=== PATIENT | male | born 1990 | race Caucasian/White ===

== ENCOUNTER 2016-10-24 20:33 | Inpatient (IN) | payer SELFPAY ==
[~2016-10-24] VITALS: Ht 175.3 cm; Wt 73.5 kg
[2016-10-24 20:35] VITALS: BP 133/76; PULSE 84; RESP 18; TEMP 98.4; O2SAT 98
[2016-10-24] MEDS ORDERED: SODIUM CHLOR 0.9% 1000 ML INJ 1,000 ML IV SCH (20:45)
[2016-10-24] MEDS ORDERED: KETOROLAC TROMETHAMINE 30 MG/ML (IVP) VIAL IV PUSH ONE (21:00)
[2016-10-24] MEDS ORDERED: ONDANSETRON HCL 4 MG/2 ML VIAL IV PUSH ONE (21:00)
[2016-10-24 21:08] LABS: AUTOMATED NEUTROPHIL # 7.8 TH/MM3 (1.8-7.7); BASOPHIL % 0.2 % (0.0-2.0); EOSINOPHIL # 0.1 TH/MM3 (0-0.4); EOSINOPHIL % 0.8 % (0.0-4.0); HEMATOCRIT 44.7 % (39.0-51.0); HEMO FLAGS DIFF FINAL; LYMPH % 11.9 % (9.0-44.0); LYMPHOCYTE # 1.2 TH/MM3 (1.0-4.8); MEAN CELL VOLUME 84.5 FL (80.0-100.0); MEAN CORPUSCULAR HEMOGLOBIN 29.6 PG (27.0-34.0); NEUT % 78.1 % (16.0-70.0); PLATELET COUNT 231 TH/MM3 (150-450); RED BLOOD COUNT 5.29 MIL/MM3 (4.50-5.90); RED CELL DISTRIBUTION WIDTH 12.8 % (11.6-17.2); WHITE BLOOD COUNT 9.9 TH/MM3 (4.0-11.0)
[2016-10-24 21:26] LABS: APTT (PATIENT) 28.9 SEC (24.3-30.1); PROTHROMBIN TIME - PATIENT 10.9 SEC (9.8-11.6)
[2016-10-24 21:34] LABS: ANION GAP 8 MEQ/L (5-15); AST (GOT) 593 U/L (15-37); BICARBONATE 29.5 MEQ/L (21.0-32.0); BLOOD UREA NITROGEN 8 MG/DL (7-18); CHLORIDE 102 MEQ/L (98-107); GLOMERULAR FILTRATION RATE 96 ML/MIN (>89); POTASSIUM 4.1 MEQ/L (3.5-5.1); SODIUM (NA) 139 MEQ/L (136-145)
[2016-10-24 21:42] LABS: ALKALINE PHOSPHATASE 190 U/L (45-117); ALT (GPT) 1524 U/L (12-78); TOTAL BILIRUBIN ADULT 0.5 MG/DL (0.2-1.0)
[2016-10-24] MEDS ORDERED: MORPHINE SULFATE 4 MG/ML INJ IV PUSH ONE (22:00)
--- NOTE | 2016-10-24 22:10 | PD ---
HPI Chief Complaint: Abdominal Pain Time Seen by Provider: 22:04 Travel History International Travel<30 days: No Contact w/Intl Traveler<30days: No Traveled to known affect area: No History of Present Illness HPI 26-year-old male that presents to the ED for evaluation of abdominal pain. Patient came here by ambulance for evaluation of this. Per patient last year he was diagnosed by a hospital in [place] with what appears to be liver failure. At the time the didn't know what was the cause but apparently he does have a history of IV drug abuse and this was felt to be the diagnosis. Patient did not want to stay at that hospital and left AMA. Patient went to this hospital in July and was seen at the time he was not felt to require admission. Patient has not followed up with anybody since. Per patient his been doing okay and his been off drugs and alcohol since. Per patient for the past 4 days she's been developing some right upper quadrant as well as left lower quadrant abdominal discomfort that comes and goes. Per patient he feels nauseous. He's also been having darker urine than usual. He is concerned that his symptoms might be worsening. Per patient the pain currently is 6 out of 10. He denies any headache. He states feeling nauseous with some vomiting. He states having some chills and sweats. Per patient he states that he been told that his skin and eyes are somewhat yellow. PFSH Past Medical History Hepatitis: Yes (c) Medical other: Yes (liver problems undiagnosed) Social History Alcohol Use: No ("QUIT" "ON PROBATION") Tobacco Use: Yes (1 PPD) Substance Use: Yes (marijuana) Allergies-Medications (Allergen,Severity, Reaction): Coded Allergies: No Known Allergies (Verified , 10/24/16) Reported Meds & Prescriptions Reported Meds & Active Scripts Active No Active Prescriptions or Reported Medications Review of Systems General / Constitutional: Positive: Fever, No: Weight Gain, Weight Loss, Other Eyes: No: Diploplia, Blurred Vision, Photophobia, Drainage, Redness, Foreign Body Sensation, Pain, Tearing, Blind Spots, Visual changes, Blindness, Other HENT: No: Headaches, Vertigo, Lightheadedness, Sore Throat, Rhinitis, Rhinorrhea, Congestion, Nosebleed, Neck Stiffness, Neck Pain, Masses, Gingival Bleeding, Dental Difficulties, Ear Discharge, Earache, Other Cardiovascular: No: Chest Pain or Discomfort, Palpitations, Irregular Rhythm, Tachycardia, Diaphoresis, Syncope, Dyspnea on exertion, Varicosities, Edema, Cyanosis, Varicosities, Phlebitis, Claudication, Other Respiratory: No: Cough, Shortness of Breath, Wheezing, Sneezing, Orthopnea, Hemoptysis, Stridor, Night Sweats, Pleuritic Pain, Other Gastrointestinal: Positive: Nausea, Vomiting, Diarrhea, Abdominal Pain, Changes in Bowel Habits, No: Hematemesis, Hematochezia, Constipation, Indigestion, Dysphagia, Loss of Appetite, Other Genitourinary: No: Urgency, Frequency, Dysuria, Nocturia, Hematuria, Decreased Urinary Output, Oliguria, Hesitancy, Dribbling, Incontinence, Pelvic Pain, Flank Pain, Dyspareunia, Discharge, Dysmenorrhea, Menorrhagia, Metorrhagia, Vaginal Bleeding, Other Musculoskeletal: No: Myalgias, Arthralgias, Limited ROM, Weakness, Cramping, Edema, Pain, Atrophy, Other Skin: No Rash, No Itching, No Dryness, No Lumps, No Hives, No Change in Pigmentation, No Change in nails, No Alopecia, No Lesions, No Breast Lumps, No Breast Tenderness, No Breast Swelling, No Other Neurologic: No: Weakness, Dizziness, Syncope, Focal Abnormalities, Coordination Problem, Tremor, Ataxia, Headache, Change in Mentation, Slurred Speech, Paresthesia, Incontinence, Seizures, Sensory Disturbance, Other Psychiatric: No: Anxiety, Depression, Suicidal Ideations, Disorder of Thought, Mood Disorder, Substance Abuse, Homicidal Ideation, Other Endocrine: No: Heat Intolerance, Cold Intolerance, Polyuria, Polydipsia, Other Hematologic/Lymphatic: No: Easy Bruising, Lymph Node Enlargement, Other Physical Exam Narrative GENERAL: SKIN: Warm and dry. HEAD: Atraumatic. Normocephalic. EYES: Pupils equal and round. No scleral icterus. No injection or drainage. ENT: No nasal bleeding or discharge. Mucous membranes pink and moist. Tongue is midline. No uvula deviation. NECK: Trachea midline. No JVD. CARDIOVASCULAR: Regular rate and rhythm. No murmurs, S3, S4. RESPIRATORY: No accessory muscle use. Clear to auscultation. Breath sounds equal bilaterally. GASTROINTESTINAL: Abdomen soft, slight tenderness to palpation on the right upper quadrant as well as in the left lower quadrant but no obvious Zuñiga sign , nondistended. Hepatic and splenic margins not palpable. MUSCULOSKELETAL: Extremities without clubbing, cyanosis, or edema. No obvious deformities. Full range of motion of the upper and lower extremities bilaterally. 2+ pulses bilaterally. NEUROLOGICAL: Awake and alert. No obvious cranial nerve deficits. Motor grossly within normal limits. Five out of 5 muscle strength in the arms and legs. Normal speech. PSYCHIATRIC: Appropriate mood and affect; insight and judgment normal. Data Data Last Documented VS Vital Signs Date Time Temp Pulse Resp B/P Pulse Ox O2 Delivery O2 Flow Rate FiO2 10/24/16 23:01 18 10/24/16 20:35 98.4 84 133/76 98 Orders Complete Blood Count With Diff (10/24/16 20:45) Comprehensive Metabolic Panel (10/24/16 20:45) Lipase (10/24/16 20:45) Prothrombin Time / Inr (Pt) (10/24/16 20:45) Act Partial Throm Time (Ptt) (10/24/16 20:45) Urinalysis - C+S If Indicated (10/24/16 20:45) Iv Access Insert/Monitor (10/24/16 20:45) Ecg Monitoring (10/24/16 20:45) Oximetry (10/24/16 20:45) Sodium Chlor 0.9% 1000 Ml Inj (Ns 1000 M (10/24/16 20:45) Drug Screen, Random Urine (10/24/16 20:45) Ketorolac Inj (Toradol Inj) (10/24/16 21:00) Ondansetron Inj (Zofran Inj) (10/24/16 21:00) Morphine Inj (Morphine Inj) (10/24/16 22:00) Ct Abd/Pel W Iv Contrast(Rout) (10/24/16 ) Tylenol (Acetaminophen) (10/24/16 23:06) Labs Laboratory Tests Test 10/24/16 10/24/16 20:55 22:10 White Blood Count 9.9 TH/MM3 Red Blood Count 5.29 MIL/MM3 Hemoglobin 15.7 GM/DL Hematocrit 44.7 % Mean Corpuscular Volume 84.5 FL Mean Corpuscular Hemoglobin 29.6 PG Mean Corpuscular Hemoglobin 35.0 % Concent Red Cell Distribution Width 12.8 % Platelet Count 231 TH/MM3 Mean Platelet Volume 7.6 FL Neutrophils (%) (Auto) 78.1 % Lymphocytes (%) (Auto) 11.9 % Monocytes (%) (Auto) 9.0 % Eosinophils (%) (Auto) 0.8 % Basophils (%) (Auto) 0.2 % Neutrophils # (Auto) 7.8 TH/MM3 Lymphocytes # (Auto) 1.2 TH/MM3 Monocytes # (Auto) 0.9 TH/MM3 Eosinophils # (Auto) 0.1 TH/MM3 Basophils # (Auto) 0.0 TH/MM3 CBC Comment DIFF FINAL Differential Comment Prothrombin Time 10.9 SEC Prothromb Time International 1.0 RATIO Ratio Activated Partial 28.9 SEC Thromboplast Time Sodium Level 139 MEQ/L Potassium Level 4.1 MEQ/L Chloride Level 102 MEQ/L Carbon Dioxide Level 29.5 MEQ/L Anion Gap 8 MEQ/L Blood Urea Nitrogen 8 MG/DL Creatinine 0.94 MG/DL Estimat Glomerular Filtration 96 ML/MIN Rate Random Glucose 93 MG/DL Calcium Level 9.5 MG/DL Total Bilirubin 0.5 MG/DL Aspartate Amino Transf 593 U/L (AST/SGOT) Alanine Aminotransferase 1524 U/L (ALT/SGPT) Alkaline Phosphatase 190 U/L Total Protein 7.8 GM/DL Albumin 3.8 GM/DL Lipase 141 U/L Urine Color YELLOW Urine Turbidity CLEAR Urine pH 8.0 Urine Specific [place] 1.015 Urine Protein NEG mg/dL Urine Glucose (UA) NEG mg/dL Urine Ketones NEG mg/dL Urine Occult Blood NEG Urine Nitrite NEG Urine Bilirubin NEG Urine Urobilinogen LESS THAN 2.0 MG/DL Urine Leukocyte Esterase NEG Urine RBC LESS THAN 1 /hpf Urine WBC LESS THAN 1 /hpf Microscopic Urinalysis Comment CULT NOT INDICATED Urine Opiates Screen NEG Urine Barbiturates Screen NEG Urine Amphetamines Screen NEG Urine Benzodiazepines Screen NEG Urine Cocaine Screen POS Urine Cannabinoids Screen POS MDM Medical Decision Making Medical Screen Exam Complete: Yes Emergency Medical Condition: Yes Medical Record Reviewed: Yes Interpretation(s) LFTs highly elevated. CBC & BMP Diagram 10/24/16 20:55 coags WNL tox positive for cocaine and marijuana Differential Diagnosis Liver failure versus elevated liver enzymes versus hepatitis versus UTI versus sepsis versus cholecystitis versus cholelithiasis Narrative Course 26-year-old male that presents to the ED for evaluation of abdominal discomfort. Patient was properly examined and was found to have signs and symptoms consistent with appears to be abdominal pain. Labs were initially ordered as well as fluids and pain medications. Labs did show severe elevated LFTs with a ALT being 1500s. This is more than tripled what he was found to have on July. I discussed this with my attending Dr Wheeler who recommends imaging and admission. Case was discussed with Dr. Callejas who recommends Tylenol level but agrees to admission. Tylenol level was ordered by me. Patient agrees with plan. Diagnosis Primary Impression: Elevated liver enzymes Admitting Information Admitting Physician Requests: Admit Scripts No Active Prescriptions or Reported Meds Florian Hardin Oct 24, 2016 22:09
[2016-10-24 22:32] LABS: BLOOD, URINE NEG (NEG); GLUCOSE,URINE NEG (NEG); KETONE, URINE NEG (NEG); NITRITE,URINE NEG (NEG); URINE COLOR YELLOW (YELLW/STRAW)
[2016-10-24 22:34] LABS: COMMENT (UR) CULT NOT INDICATED; CULTURE IF INDICATED CULT NOT INDICATED
[2016-10-24 22:39] LABS: AMPHETAMINE, URINE NEG (NEG); BARBITURATES, URINE NEG (NEG); COCAINE, URINE POS (NEG)
[2016-10-24] MEDS ORDERED: IOHEXOL 350 MG/ML 10 ML VIAL (for RAD DIAG) IV ONE (23:08)
--- NOTE | 2016-10-24 23:09 | HHI.HP ---
[facility] No Primary Care Physician Admission Diagnosis severely elevated LFTs, hep C Diagnoses: (1) Elevated liver enzymes Diagnosis: Principal (2) Cocaine abuse Diagnosis: Principal (3) Tobacco abuse Diagnosis: Principal (4) IVDU (intravenous drug user) Diagnosis: Principal Travel History International Travel<30 Days: No Contact w/Intl Traveler <30 Da: No Traveled to Known Affected Are: No History of Present Illness This is a 26-year-old male with a PMH of Hepatitis C, Tobacco Abuse and IVDU w/ Cocaine who was brought to the ER by EMS secondary to complaints of abdominal pain x1 month in addition to brown-colored urine. States symptoms have been worsening for the last 2-3 days. Reports he was seen in [place] [facility] for similar complaints approx 4 months ago and was told have "liver failure", however he Left [place] and returned to [facility]. Seen in ER here on 07/22/16 w/ similar complaints, LFTs mildly elevated at that time and d/c'd home w/ referral to Dr. Colón w/ GI however pt never followed up. On arrival, BP 133/ 76, HR 84, O2 sat 98% on RA, Afebrile. CBC unremarkable. Chemistry unremarkable. AST 593, ALT 1524, ALP 190, previously AST 43, ALT 374 and ALP 74 on 07/22/16. Denies recent IVDU, however Urine Drug Screen positive for Cocaine and Marijuana. CT Abd/Pelvis w/ no acute findings. Review of Systems Except as stated in HPI: all other systems reviewed are Neg ROS: 14 point review of systems otherwise negative. Past Family Social History Past Medical History PMH: Hepatitis C, Tobacco Abuse and IVDU w/ Cocaine Past Surgical History PAST SURGICAL HISTORY: Left Knee Surgery Allergies: Coded Allergies: No Known Allergies (Verified , 10/24/16) Family History PAST FAMILY HISTORY: Reviewed. No h/o DM or CAD Social History PAST SOCIAL HISTORY: History of alcohol, denies ongoing use. Smokes 1ppd. IVDU w/ Cocaine/Dilaudid. +Marijuana. Physical Exam Vital Signs Vital Signs Date Time Temp Pulse Resp B/P Pulse Ox O2 Delivery O2 Flow Rate FiO2 10/24/16 23:01 18 10/24/16 20:35 98.4 84 18 133/76 98 Physical Exam PE: GENERAL: Young male in no acute distress. HEENT: PERRLA, EOMI. No scleral icterus or conjunctival pallor. No lid lag or facial droop. CARDIOVASCULAR: Regular rate and rhythm. No obvious murmurs to auscultation. No chest tenderness to palpation. RESPIRATORY: No obvious rhonchi or wheezing. Clear to auscultation. Breath sounds equal bilaterally. GASTROINTESTINAL: Abdomen soft, mild RUQ tenderness palpation, nondistended. BS normal. MUSCULOSKELETAL: Extremities without clubbing, cyanosis, or edema. No obvious deformities. NEUROLOGICAL: Awake, alert and oriented x4. No focal neurologic deficits. Moving both upper and lower extremities spontaneously. Laboratory Laboratory Tests Test 10/24/16 10/24/16 20:55 22:10 White Blood Count 9.9 Red Blood Count 5.29 Hemoglobin 15.7 Hematocrit 44.7 Mean Corpuscular Volume 84.5 Mean Corpuscular Hemoglobin 29.6 Mean Corpuscular Hemoglobin 35.0 Concent Red Cell Distribution Width 12.8 Platelet Count 231 Mean Platelet Volume 7.6 Neutrophils (%) (Auto) 78.1 Lymphocytes (%) (Auto) 11.9 Monocytes (%) (Auto) 9.0 Eosinophils (%) (Auto) 0.8 Basophils (%) (Auto) 0.2 Neutrophils # (Auto) 7.8 Lymphocytes # (Auto) 1.2 Monocytes # (Auto) 0.9 Eosinophils # (Auto) 0.1 Basophils # (Auto) 0.0 CBC Comment DIFF FINAL Differential Comment Prothrombin Time 10.9 Prothromb Time International 1.0 Ratio Activated Partial 28.9 Thromboplast Time Sodium Level 139 Potassium Level 4.1 Chloride Level 102 Carbon Dioxide Level 29.5 Anion Gap 8 Blood Urea Nitrogen 8 Creatinine 0.94 Estimat Glomerular Filtration 96 Rate Random Glucose 93 Calcium Level 9.5 Total Bilirubin 0.5 Aspartate Amino Transf 593 (AST/SGOT) Alanine Aminotransferase 1524 (ALT/SGPT) Alkaline Phosphatase 190 Total Protein 7.8 Albumin 3.8 Lipase 141 Urine Color YELLOW Urine Turbidity CLEAR Urine pH 8.0 Urine Specific [place] 1.015 Urine Protein NEG Urine Glucose (UA) NEG Urine Ketones NEG Urine Occult Blood NEG Urine Nitrite NEG Urine Bilirubin NEG Urine Urobilinogen LESS THAN 2.0 Urine Leukocyte Esterase NEG Urine RBC LESS THAN 1 Urine WBC LESS THAN 1 Microscopic Urinalysis Comment CULT NOT INDICATED Urine Opiates Screen NEG Urine Barbiturates Screen NEG Urine Amphetamines Screen NEG Urine Benzodiazepines Screen NEG Urine Cocaine Screen POS Urine Cannabinoids Screen POS Result Diagram: 10/24/16205410/24/162054 Assessment and Plan Problem List: (1) Elevated liver enzymes ICD Code: R74.8 Status: Acute (2) Cocaine abuse ICD Code: F14.10 Status: Acute (3) IVDU (intravenous drug user) ICD Code: F19.90 Status: Acute (4) Tobacco abuse ICD Code: Z72.0 Status: Acute Assessment and Plan A/P: 1. Elevated LFTs: c/o ongoing abdominal pain x1 month, previous eval approx 4 months ago for "liver failure" however Left AMA, LFTs now increased from previous labs 07/22/16. CT Abd/Pelvis w/ no acute findings, images reviewed by me. H/o Hepatitis however unconfirmed. Will check Hepatitis Panel, if positive will check RNA Quant & Genotype. Check Acetaminophen level. Lipase normal. GI Consult as needed. 2. Cocaine Abuse: Denies ingestion however Urine Drug Screen positive for Cocaine, ? elevated LFTs from vasoconstriction due to drug use. Repeat labs in am. 3. Tobacco Abuse: Pt counselled. Ativan prn as needed. 4. IVDU: Denies recent use. Pt counselled. Ativan prn 5. DVT Prophylaxis: SCD/Teds. 6. Social work for d/c planning as needed. 7. Case discussed w/ ER physician at length. Physician Certification 2 Midnight Certification Type: Admission for Inpatient Services Order for Inpatient Services The services are ordered in accordance with Medicare regulations or non- Medicare payer requirements, as applicable. In the case of services not specified as inpatient-only, they are appropriately provided as inpatient services in accordance with the 2-midnight benchmark. Estimated LOS (days): 2 days is the estimated time the patient will need to remain in the hospital, assuming treatment plan goals are met and no additional complications. Post-Hospital Plan: Home Mable Callejas MD Oct 24, 2016 23:08
[2016-10-24] MEDS ORDERED: BISACODYL 10 MG SUPP PR PRN (23:15)
[2016-10-24] MEDS ORDERED: ONDANSETRON HCL 4 MG/2 ML VIAL IVP PRN (23:15)
[2016-10-24] MEDS ORDERED: LORazepam 2 MG/ML VIAL IV PUSH PRN (23:15)
[2016-10-24] MEDS: SODIUM CHLOR 0.9% 1000 ML INJ 1,000 ML IV SCH (23:38)
--- NOTE | 2016-10-24 23:45 | RADRPT ---
EXAM DATE/TIME: 10/24/2016 22:50 [facility] COMPARISON: No previous studies available for comparison. INDICATIONS : Abdominal pain and dark urine X 4 weeks. IV CONTRAST: 96 cc Omnipaque 350 (iohexol) IV ORAL CONTRAST: No oral contrast ingested. RADIATION DOSE: 5.85 CTDIvol (mGy) MEDICAL HISTORY : Hepatitis C. prior IV drug abuse and ETOH abuse SURGICAL HISTORY : None. ENCOUNTER: Initial ACUITY: 1 month PAIN SCALE: 6/10 LOCATION: abdomen TECHNIQUE: Volumetric scanning of the abdomen and pelvis was performed. Using automated exposure control and ad justment of the mA and/or kV according to patient size, radiation dose was kept as low as reasonably achievable to obtain optimal diagnostic quality images. FINDINGS: LOWER LUNGS: The visualized lower lungs are clear. LIVER: Homogeneous density without lesion. There is no dilation of the biliary tree. No calcified gallston es. SPLEEN: Normal size without lesion. PANCREAS: Within normal limits. KIDNEYS: Normal in size and shape. There is no mass, stone or hydronephrosis. ADRENAL GLANDS: Within normal limits. VASCULAR: There is no aortic aneurysm. BOWEL/MESENTERY: The stomach, small bowel, and colon demonstrate no acute abnormality. There is no free intraperitone al air or fluid. ABDOMINAL WALL: Within normal limits. RETROPERITONEUM: There is no lymphadenopathy. BLADDER: No wall thickening or mass. REPRODUCTIVE: Within normal limits. INGUINAL: There is no lymphadenopathy or hernia. MUSCULOSKELETAL: Within normal limits for patient age. CONCLUSION: Normal examination. Lazarus Hendrix Jr., MD on October 24, 2016 at 23:42 Board Certified Radiologist. This report was verified electronically.
[2016-10-25] MEDS ORDERED: MORPHINE SULFATE 8 MG/ML INJ IV PUSH ONE (02:16)
[2016-10-25] MEDS ORDERED: ONDANSETRON HCL 4 MG/2 ML VIAL IV PUSH ONE (02:16)
[2016-10-25] MEDS ORDERED: MORPHINE SULFATE 8 MG/ML INJ ONE (02:27)
[2016-10-25] MEDS ORDERED: DEXTROSE 5% IV ONE ×6 (02:30→07:30)
[2016-10-25] MEDS ORDERED: ACETYLCYSTEINE IV ONE ×6 (02:30→07:30)
[2016-10-25] MEDS ORDERED: WATER IV ONE ×2 (02:30)
[2016-10-25] MEDS: SODIUM CHLOR 0.9% 1000 ML INJ 1,000 ML IV SCH ×3 (02:58→03:48)
[2016-10-25] MEDS ORDERED: SODIUM CHLOR 0.9% 1000 ML INJ 1,000 ML IV ONE (03:00)
[2016-10-25] MEDS ORDERED: WATE IV ONE ×4 (03:30→07:30)
[2016-10-25 03:43] LABS: AUTOMATED NEUTROPHIL # 3.8 TH/MM3 (1.8-7.7); BASOPHIL % 0.6 % (0.0-2.0); EOSINOPHIL # 0.2 TH/MM3 (0-0.4); EOSINOPHIL % 2.7 % (0.0-4.0); HEMATOCRIT 39.6 % (39.0-51.0); HEMO FLAGS DIFF FINAL; LYMPH % 29.6 % (9.0-44.0); LYMPHOCYTE # 1.9 TH/MM3 (1.0-4.8); MEAN CELL VOLUME 84.3 FL (80.0-100.0); MEAN CORPUSCULAR HEMOGLOBIN 28.9 PG (27.0-34.0); MEAN CORPUSCULAR HGB CONC 34.3 % (32.0-36.0); MONO % 9.7 % (0.0-8.0); NEUT % 57.4 % (16.0-70.0); PLATELET COUNT 198 TH/MM3 (150-450); RED BLOOD COUNT 4.69 MIL/MM3 (4.50-5.90); RED CELL DISTRIBUTION WIDTH 12.8 % (11.6-17.2); WHITE BLOOD COUNT 6.6 TH/MM3 (4.0-11.0)
[2016-10-25 03:47] LABS: INTERNATIONAL NORMALIZED RATIO 1.1 RATIO; PROTHROMBIN TIME - PATIENT 12.2 SEC (9.8-11.6)
[2016-10-25 03:56] LABS: ANION GAP 13 MEQ/L (5-15); AST (GOT) 391 U/L (15-37); BICARBONATE 26.4 MEQ/L (21.0-32.0); BLOOD UREA NITROGEN 11 MG/DL (7-18); CHLORIDE 104 MEQ/L (98-107); POTASSIUM 3.8 MEQ/L (3.5-5.1); SODIUM (NA) 143 MEQ/L (136-145)
[2016-10-25 04:03] LABS: ALKALINE PHOSPHATASE 142 U/L (45-117); ALT (GPT) 1140 U/L (12-78); TOTAL BILIRUBIN ADULT 0.5 MG/DL (0.2-1.0)
[2016-10-25 04:18] VITALS: BP 135/88; PULSE 88; RESP 18; O2SAT 96
[2016-10-25 04:40] VITALS: BP 131/44; PULSE 73; RESP 22; TEMP 97; O2SAT 98
[2016-10-25 08:00] VITALS: BP 126/63; PULSE 71; RESP 18; TEMP 97.2; O2SAT 98
[2016-10-25] MEDS: MORPHINE SULFATE 4 MG/ML INJ IV PRN ×4 (08:16→21:15)
[2016-10-25] MEDS: SODIUM CHLORIDE 0.9% FLUSH 10 ML FLUSH IV FLUSH SCH ×2 (08:17→21:00)
--- NOTE | 2016-10-25 11:14 | HHI.PR ---
Subjective Remarks in no acute distress. complaining of abdominal pain and some nausea. no fever. Objective Vitals Vital Signs Date Time Temp Pulse Resp B/P Pulse Ox O2 Delivery O2 Flow Rate FiO2 10/25/16 08:00 97.2 71 18 126/63 98 10/25/16 07:00 Room Air 10/25/16 04:40 97.0 73 22 131/44 98 10/25/16 04:18 96 Room Air 10/25/16 04:18 88 18 135/88 96 Room Air 10/24/16 23:01 18 10/24/16 20:35 98.4 84 18 133/76 98 I/O 10/24/16 10/24/16 10/24/16 10/25/16 10/25/16 10/25/16 07:00 15:00 23:00 07:00 15:00 23:00 Intake Total 480 ml Output Total 500 ml Balance -20 ml Intake Oral 480 ml Output Urine Total 500 ml # Bowel Movements 0 Result Diagram: 10/25/16 0327 10/25/16 0327 Imaging Last Impressions Abdomen/Pelvis CT 10/24/16 0000 Signed Impressions: Service Date/Time: Monday, October 24, 2016 22:50 - CONCLUSION: Normal examination. Lazarus Hendrix Jr., MD Objective Remarks GENERAL: This is a well-nourished, well-developed patient, in no apparent distress. CARDIOVASCULAR: Regular rate and regular rhythm without murmurs, gallops, or rubs. RESPIRATORY: Clear to auscultation. Breath sounds equal bilaterally. No wheezes , rales, or rhonchi. GASTROINTESTINAL: Abdomen soft, epigastric tenderness, nondistended. Normal, active bowel sounds MUSCULOSKELETAL: Extremities without clubbing, cyanosis, or edema. NEURO: Alert & Oriented x4 to person, place, time, situation. Moves all ext x4 Procedures none Medications and IVs Current Medications Sodium Chloride (NS 1000 ml Inj) 1,000 ml @ 1,000 mls/hr Q1H IV Last administered on 10/24/16 20:53; Start 10/24/16 at 20:45; Stop 10/24/16 at 21:44 ; Status DC Ketorolac Tromethamine (Toradol Inj) 30 mg ONCE ONCE IV PUSH Last administered on 10/24/16 21:19; Start 10/24/16 at 21:00; Stop 10/24/16 at 21:01 ; Status DC Ondansetron HCl (Zofran Inj) 4 mg ONCE ONCE IV PUSH Last administered on 21:19; Start 10/24/16 at 21:00; Stop 10/24/16 at 21:01; Status DC Morphine Sulfate (Morphine Inj) 4 mg ONCE ONCE IV PUSH Last administered on 22:16; Start 10/24/16 at 22:00; Stop 10/24/16 at 22:01; Status DC Iohexol 96 ml 96 ml STK-MED ONCE IV Last administered on 10/24/16 23:08; Start 10/24/16 at 23:08; Stop 10/24/16 at 23:09; Status DC Sodium Chloride (NS 1000 ml Inj) 1,000 ml @ 100 mls/hr Q10H IV Last administered on 10/25/16 03:48; Start 10/24/16 at 23:02 Sodium Chloride (NS Flush) 2 ml UNSCH PRN IV FLUSH FLUSH AFTER USING IV ACCESS ; Start 10/24/16 at 23:15 Sodium Chloride (NS Flush) 2 ml BID IV FLUSH Last administered on 10/25/16 08: 17; Start 10/25/16 at 09:00 Ondansetron HCl (Zofran Inj) 4 mg Q6H PRN IVP NAUSEA OR VOMITING; Start at 23:15 Bisacodyl (Dulcolax Supp) 10 mg DAILY PRN TX CONSTIPATION; Start 10/24/16 at 23 :15 Morphine Sulfate (Morphine Inj) 2 mg Q3H PRN IV Pain 6-10 Last administered on 10/25/16 08:16; Start 10/24/16 at 23:15 Oxycodone HCl (Roxicodone) 5 mg Q4H PRN PO PAIN SCALE 3 TO 5; Start 10/24/16 at 23:15 Lorazepam (Ativan Inj) 1 mg Q3H PRN IV PUSH WITHDRAWAL/AGITATION; Start at 23:15 Morphine Sulfate (Morphine Inj) 8 mg STK-MED ONCE .ROUTE ; Start 10/25/16 at 02: 27; Stop 10/25/16 at 02:28; Status DC Morphine Sulfate (Morphine Inj) 8 mg NOW ONCE IV PUSH Last administered on 02:59; Start 10/25/16 at 02:16; Stop 10/25/16 at 02:56; Status DC Ondansetron HCl 4 mg 4 mg ONCE ONCE IV PUSH Last administered on 10/25/16 02: 59; Start 10/25/16 at 02:16; Stop 10/25/16 at 02:56; Status DC Sodium Chloride 1,000 ml @ 999 mls/hr Q1H1M ONCE IV Last administered on 03:00; Start 10/25/16 at 03:00; Stop 10/25/16 at 04:02; Status DC Acetylcysteine 52639 mg/Dextrose 261.36 ml @ 261.36 mls/hr ONCE ONCE IV Last administered on 10/25/16 03:18; Start 10/25/16 at 02:30; Stop 10/25/16 at 03:29 ; Status DC Acetylcysteine 4100 mg/Dextrose 520.5 ml @ 130.125 mls/hr ONCE ONCE IV Last administered on 10/25/16 03:48; Start 10/25/16 at 03:30; Stop 10/25/16 at 07:29 ; Status DC Acetylcysteine/ Dextrose (Acetadote Inj/ D5W 1000 ml Inj) 1,041 ml @ 62.5 mls/ hr ONCE ONCE IV Last administered on 10/25/16 08:12; Start 10/25/16 at 07:30 ; Stop 10/26/16 at 00:09 A/P Assessment and Plan A/P 1. Elevated LFTs: c/o ongoing abdominal pain x1 month, previous eval approx 4 months ago for "liver failure" however Left AMA, LFTs now increased from previous labs 07/22/16. CT Abd/Pelvis w/ no acute findings. H/o Hepatitis however unconfirmed. Hepatitis Panel pending- will check liver US and consult GI. 2. Cocaine Abuse: Denies ingestion however Urine Drug Screen positive for Cocaine, ? elevated LFTs from vasoconstriction due to drug use. Repeat labs in am. 3. Tobacco Abuse: Pt counselled. Ativan prn as needed. 4. IVDU: Denies recent use. Pt counselled. Ativan prn 5. DVT Prophylaxis: SCD/Teds. Grace Lyon MD Oct 25, 2016 11:14
[2016-10-25 12:00] VITALS: BP 123/70; PULSE 69; RESP 18; TEMP 98.6; O2SAT 97
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
[2016-10-25] MEDS: NICOTINE 21 MG/24 HR PATCH TD SCH (15:03)
[2016-10-25 16:00] VITALS: BP 134/67; PULSE 71; RESP 18; TEMP 98.4; O2SAT 98
[2016-10-25 20:00] VITALS: BP 137/76; PULSE 83; RESP 17; TEMP 99.7; O2SAT 94
[2016-10-25] MEDS: SODIUM CHLORIDE 0.9% FLUSH 10 ML FLUSH IV FLUSH PRN (21:15)
[2016-10-26] VITALS: BP 126/62; PULSE 75; RESP 16; TEMP 98.8; O2SAT 97
[2016-10-26] MEDS: MORPHINE SULFATE 4 MG/ML INJ IV PRN ×2 (06:23→10:42)
[2016-10-26] MEDS: SODIUM CHLORIDE 0.9% FLUSH 10 ML FLUSH IV FLUSH PRN (06:24)
[2016-10-26 08:00] VITALS: BP 126/63; PULSE 68; RESP 18; TEMP 99.5; O2SAT 97
[2016-10-26] MEDS: SODIUM CHLORIDE 0.9% FLUSH 10 ML FLUSH IV FLUSH SCH ×2 (08:06→21:00)
[2016-10-26] MEDS: NICOTINE 21 MG/24 HR PATCH TD SCH (08:09)
[2016-10-26] MEDS: REMOVE OLD PATCH TD SCH (08:09)
[2016-10-26] MEDS: SODIUM CHLOR 0.9% 1000 ML INJ 1,000 ML IV SCH ×3 (08:11→21:23)
--- NOTE | 2016-10-26 09:24 | HHI.GIFU ---
Subjective Remarks Resting in bed. Denies any nausea or vomiting. Continues to have epigastric pain that he reports is constant. He is only getting minimal relief with the pain medicines requesting that this be increased. (Gail Knowles) Objective Vitals I&O Vital Signs Date Time Temp Pulse Resp B/P Pulse Ox O2 Delivery O2 Flow Rate FiO2 10/26/16 08:00 99.5 68 18 126/63 97 10/26/16 06:28 18 10/26/16 00:00 98.8 75 16 126/62 97 10/25/16 20:00 94 Room Air 10/25/16 20:00 99.7 83 17 137/76 94 10/25/16 19:19 18 10/25/16 16:00 98.4 71 18 134/67 98 10/25/16 12:00 98.6 69 18 123/70 97 I/O 10/25/16 10/25/16 10/25/16 10/26/16 10/26/16 10/26/16 07:00 15:00 23:00 07:00 15:00 23:00 Intake Total 480 ml 2280 ml 1042 ml 847 ml Output Total 500 ml 500 ml Balance -20 ml 2280 ml 1042 ml 347 ml Intake Oral 480 ml 960 ml 240 ml 0 ml IV Total 1320 ml 802 ml 847 ml Output Urine Total 500 ml 500 ml # Voids 7 1 # Bowel Movements 0 0 0 0 Imaging Last Impressions Abdomen/Pelvis CT 10/24/16 0000 Signed Impressions: Service Date/Time: Monday, October 24, 2016 22:50 - CONCLUSION: Normal examination. Lazarus Hendrix Jr., MD Physical Exam HEENT: Normocephalic; atraumatic; + jaundice. CHEST: CTA CARDIAC: RRR ABDOMEN: Soft, nondistended, epigastric tenderness; no hepatosplenomegaly; bowel sounds are present in all four quadrants. EXTREMITIES: No clubbing, cyanosis, or edema. SKIN: Normal; no rash; no jaundice. REGIONAL PLANNER: No focal deficits; alert and oriented times three. (Gail Knowles) Assessment and Plan Plan ASSESSMENT: - Elevated LFTs with hx of IVDA and multiple tattoos. Pt reports that he was previously told he had "liver failure" in 07/2016 at [facility] in [place] but he left AMA before this could be worked up. Viral hepatitis panel is pending. Pt denies any recent IVDA in the last 6 months and denies any other drug use other than marijuana although his toxicology screen was (+) for cocaine. CT was unremarkable. Slight improvement in LFTs today, but remain elevated at T. Bili 0.5, AST 391, ALT 1140, Alk Phosph 142. Hepatitis profile pending. - Abdominal pain, N/V. N/V improved, although still having epigastric pain. US pending. PLAN: - NPO for US - RUQ US - Await hepatitis profile - If negative, then check autoimmune labs. - Monitor LFTs - Supportive care - Avoid hepatotoxic meds - Further recs as the case develops - The pt was seen and examined by myself and Dr. Marai, this note was written on his behalf. (Gail Knowles) Physician Comments Patient seen and examined Agree with above Continue with current supportive care Monitor labs Labs now revealing hepatitis C Ultrasound revealing a small hypoechoic lesion in the head of the pancreas that did not show up on CT and the patient has normal lipase at this point this is probably of little significance but will need to be monitored suggest repeat CT of the abdomen with pancreatic protocol with contrast [address] Patient needs to stop any and all drugs Patient to follow up with GI post discharge Okay to advance diet as tolerated this patient is insisting on eating at this point and has no nausea or vomiting Not much to add at this point therefore we will sign off (He Maria MD) Gail Knowles Oct 26, 2016 09:24 He Maria MD Oct 26, 2016 23:07
[2016-10-26 11:19] LABS: INDIRECT BILIRUBIN 0.4 MG/DL (0.0-0.8); TOTAL BILIRUBIN ADULT 0.5 MG/DL (0.2-1.0)
--- NOTE | 2016-10-26 11:42 | HHI.PR ---
Subjective Remarks in no acute distress. complaining of severe pain to the epigastric area. had some nausea and emesis earlier this morning. Objective Vitals Vital Signs Date Time Temp Pulse Resp B/P Pulse Ox O2 Delivery O2 Flow Rate FiO2 10/26/16 08:00 99.5 68 18 126/63 97 10/26/16 06:28 18 10/26/16 00:00 98.8 75 16 126/62 97 10/25/16 20:00 94 Room Air 10/25/16 20:00 99.7 83 17 137/76 94 10/25/16 19:19 18 10/25/16 16:00 98.4 71 18 134/67 98 10/25/16 12:00 98.6 69 18 123/70 97 I/O 10/25/16 10/25/16 10/25/16 10/26/16 10/26/16 10/26/16 07:00 15:00 23:00 07:00 15:00 23:00 Intake Total 480 ml 2280 ml 1042 ml 847 ml Output Total 500 ml 500 ml Balance -20 ml 2280 ml 1042 ml 347 ml Intake Oral 480 ml 960 ml 240 ml 0 ml IV Total 1320 ml 802 ml 847 ml Output Urine Total 500 ml 500 ml # Voids 7 1 # Bowel Movements 0 0 0 0 Result Diagram: 10/25/16 0327 10/25/16 0327 Imaging Last Impressions Abdomen/Pelvis CT 10/24/16 0000 Signed Impressions: Service Date/Time: Monday, October 24, 2016 22:50 - CONCLUSION: Normal examination. Lazarus Hendrix Jr., MD Objective Remarks GENERAL: This is a well-nourished, well-developed patient, in no apparent distress. CARDIOVASCULAR: Regular rate and regular rhythm without murmurs, gallops, or rubs. RESPIRATORY: Clear to auscultation. Breath sounds equal bilaterally. No wheezes , rales, or rhonchi. GASTROINTESTINAL: Abdomen soft, epigastric tenderness, nondistended. Normal, active bowel sounds MUSCULOSKELETAL: Extremities without clubbing, cyanosis, or edema. NEURO: Alert & Oriented x4 to person, place, time, situation. Moves all ext x4 Procedures none Medications and IVs Current Medications Sodium Chloride (NS 1000 ml Inj) 1,000 ml @ 1,000 mls/hr Q1H IV Last administered on 10/24/16 20:53; Start 10/24/16 at 20:45; Stop 10/24/16 at 21:44 ; Status DC Ketorolac Tromethamine (Toradol Inj) 30 mg ONCE ONCE IV PUSH Last administered on 10/24/16 21:19; Start 10/24/16 at 21:00; Stop 10/24/16 at 21:01 ; Status DC Ondansetron HCl (Zofran Inj) 4 mg ONCE ONCE IV PUSH Last administered on 21:19; Start 10/24/16 at 21:00; Stop 10/24/16 at 21:01; Status DC Morphine Sulfate (Morphine Inj) 4 mg ONCE ONCE IV PUSH Last administered on 22:16; Start 10/24/16 at 22:00; Stop 10/24/16 at 22:01; Status DC Iohexol 96 ml 96 ml STK-MED ONCE IV Last administered on 10/24/16 23:08; Start 10/24/16 at 23:08; Stop 10/24/16 at 23:09; Status DC Sodium Chloride (NS 1000 ml Inj) 1,000 ml @ 100 mls/hr Q10H IV Last administered on 10/26/16 08:11; Start 10/24/16 at 23:02 Sodium Chloride (NS Flush) 2 ml UNSCH PRN IV FLUSH FLUSH AFTER USING IV ACCESS Last administered on 10/26/16 06:24; Start 10/24/16 at 23:15 Sodium Chloride (NS Flush) 2 ml BID IV FLUSH Last administered on 10/25/16 21: 00; Start 10/25/16 at 09:00 Ondansetron HCl (Zofran Inj) 4 mg Q6H PRN IVP NAUSEA OR VOMITING; Start at 23:15 Bisacodyl (Dulcolax Supp) [address] CONSTIPATION; Start 10/24/16 at 23 :15 Morphine Sulfate (Morphine Inj) 2 mg Q3H PRN IV Pain 6-10 Last administered on 10/26/16 10:42; Start 10/24/16 at 23:15 Oxycodone HCl (Roxicodone) 5 mg Q4H PRN PO PAIN SCALE 3 TO 5 Last administered on 10/26/16 08:05; Start 10/24/16 at 23:15 Lorazepam (Ativan Inj) 1 mg Q3H PRN IV PUSH WITHDRAWAL/AGITATION; Start at 23:15 Morphine Sulfate (Morphine Inj) 8 mg STK-MED ONCE .ROUTE ; Start 10/25/16 at 02: 27; Stop 10/25/16 at 02:28; Status DC Morphine Sulfate (Morphine Inj) 8 mg NOW ONCE IV PUSH Last administered on 02:59; Start 10/25/16 at 02:16; Stop 10/25/16 at 02:56; Status DC Ondansetron HCl 4 mg 4 mg ONCE ONCE IV PUSH Last administered on 10/25/16 02: 59; Start 10/25/16 at 02:16; Stop 10/25/16 at 02:56; Status DC Sodium Chloride 1,000 ml @ 999 mls/hr Q1H1M ONCE IV Last administered on 03:00; Start 10/25/16 at 03:00; Stop 10/25/16 at 04:02; Status DC Acetylcysteine 34533 mg/Dextrose 261.36 ml @ 261.36 mls/hr ONCE ONCE IV Last administered on 10/25/16 03:18; Start 10/25/16 at 02:30; Stop 10/25/16 at 03:29 ; Status DC Acetylcysteine 4100 mg/Dextrose 520.5 ml @ 130.125 mls/hr ONCE ONCE IV Last administered on 10/25/16 03:48; Start 10/25/16 at 03:30; Stop 10/25/16 at 07:29 ; Status DC Acetylcysteine/ Dextrose (Acetadote Inj/ D5W 1000 ml Inj) 1,041 ml @ 62.5 mls/ hr ONCE ONCE IV Last administered on 10/25/16 08:12; Start 10/25/16 at 07:30 ; Stop 10/26/16 at 00:09; Status DC Nicotine (Habitrol 21 Mg Patch.24 Hr) 1 patch DAILY TD Last administered on 08:09; Start 10/25/16 at 15:00 Miscellaneous Information 1 DAILY TD Last administered on 10/26/16 08:09; Start 10/26/16 at 09:00 A/P Assessment and Plan A/P 1. Elevated LFTs: c/o ongoing abdominal pain x1 month, previous eval approx 4 months ago for "liver failure" however Left AMA, LFTs now increased from previous labs 07/22/16. CT Abd/Pelvis w/ no acute findings. H/o Hepatitis however unconfirmed. Hepatitis Panel pending- US liver pending- GI consult appreciated.LFT's in am. continue with pain control. 2. Cocaine Abuse: Denies ingestion however Urine Drug Screen positive for Cocaine, 3. Tobacco Abuse: Pt counselled. Ativan prn as needed. 4. IVDU: Denies recent use. Pt counselled. Ativan prn 5. DVT Prophylaxis: SCD/Teds. Grace Lyon MD Oct 26, 2016 11:42
[2016-10-26 12:00] VITALS: BP 129/69; PULSE 74; RESP 18; TEMP 98.6; O2SAT 99
[2016-10-26] MEDS: HYDROmorphone HCL PF 1 MG/ML VIAL IV PUSH PRN ×3 (13:29→22:16)
--- NOTE | 2016-10-26 13:50 | RADRPT ---
EXAM DATE/TIME: 10/26/2016 10:11 [facility] COMPARISON: CT ABDOMEN & PELVIS W CONTRAST, October 24, 2016, 22:50. INDICATIONS : Increased lab values. MEDICAL HISTORY : Hepatitis C. Abdomen pain. SURGICAL HISTORY : Left knee surgery. ENCOUNTER: Initial ACUITY: 1 day PAIN SCORE: 0/10 LOCATION: Right upper quadrant MEASUREMENTS: LIVER: 15.5 cm length COMMON DUCT: 3 mm RIGHT KIDNEY: 10.8 x 5.3 x 5.0 cm SPLEEN: 13.4 cm length FINDINGS: LIVER: Normal echotexture without focal lesion or ductal dilatation. COMMON DUCT: No intraluminal mass or stone visualized. GALLBLADDER: Contains no stones, demonstrates no wall thickening or pericholecystic fluid. PANCREAS: Well-circumscribed, hypoechoic area in the head of the pancreas measures 1.5 x 1.7 x 1.1 cm. No corre sponding abnormality identified on previous CT scan of the abdomen.. RIGHT KIDNEY: No hydronephrosis, stone or mass. SPLEEN: No focal lesion. CONCLUSION: 1. Splenomegaly. 2. Nonspecific, 1.5 cm hypoechoic nodule in the head of the pancreas. This may representing normal pa ncreatic tissue as no corresponding abnormality is identified on CT. If there is a clinical concern, MRI of the abdomen could be performed for further characterization. Edy Murguia MD on October 26, 2016 at 13:44 Board Certified Radiologist. This report was verified electronically.
[2016-10-26 16:00] VITALS: BP 101/55; PULSE 71; RESP 18; TEMP 98.3; O2SAT 96
[2016-10-26 20:00] VITALS: BP 123/73; PULSE 71; RESP 16; TEMP 96.7; O2SAT 99
[2016-10-27] VITALS: BP 134/68; PULSE 75; RESP 16; TEMP 96.7; O2SAT 99
[2016-10-27] MEDS: HYDROmorphone HCL PF 1 MG/ML VIAL IV PUSH PRN (06:03)
[2016-10-27 08:00] VITALS: BP 123/61; PULSE 86; RESP 16; TEMP 98; O2SAT 97
[2016-10-27 08:56] LABS: INDIRECT BILIRUBIN 0.2 MG/DL (0.0-0.8); TOTAL BILIRUBIN ADULT 0.4 MG/DL (0.2-1.0)
[2016-10-27] MEDS: SODIUM CHLORIDE 0.9% FLUSH 10 ML FLUSH IV FLUSH SCH (09:00)
[2016-10-27] MEDS: REMOVE OLD PATCH TD SCH (09:00)
[2016-10-27] MEDS: NICOTINE 21 MG/24 HR PATCH TD SCH (09:16)
[2016-10-27] MEDS: SODIUM CHLOR 0.9% 1000 ML INJ 1,000 ML IV SCH (11:02)
[2016-10-27 12:00] VITALS: BP 118/64; PULSE 84; RESP 16; TEMP 97.9; O2SAT 99
--- NOTE | 2016-10-27 12:40 | HHI.PR ---
Subjective Remarks in no acute distress. abdominal pain is better. no nausea and tolerating the diet. wants to go home today. Objective Vitals Vital Signs Date Time Temp Pulse Resp B/P Pulse Ox O2 Delivery O2 Flow Rate FiO2 10/27/16 08:00 98.0 86 16 123/61 97 10/27/16 07:15 Room Air 10/27/16 00:00 96.7 75 16 134/68 99 10/26/16 20:00 96.7 71 16 123/73 99 10/26/16 19:00 Room Air 10/26/16 16:00 98.3 71 18 101/55 96 I/O 10/26/16 10/26/16 10/26/16 10/27/16 10/27/16 10/27/16 07:00 15:00 23:00 07:00 15:00 23:00 Intake Total 847 ml 0 ml 1491 ml 1022 ml Output Total 500 ml Balance 347 ml 0 ml 1491 ml 1022 ml Intake Oral 0 ml 0 ml 240 ml 240 ml IV Total 847 ml 1251 ml 782 ml Output Urine Total 500 ml # Voids 6 1 1 # Bowel Movements 0 0 0 0 Result Diagram: 10/25/16 0327 10/25/16 0327 Imaging Last Impressions Liver Ultrasound 10/26/16 0000 Signed Impressions: Service Date/Time: Wednesday, October 26, 2016 10:11 - CONCLUSION: 1. Splenomegaly. 2. Nonspecific, 1.5 cm hypoechoic nodule in the head of the pancreas. This may representing normal pancreatic tissue as no corresponding abnormality is identified on CT. If there is a clinical concern, MRI of the abdomen could be performed for further characterization. Edy Murguia MD Abdomen/Pelvis CT 10/24/16 0000 Signed Impressions: Service Date/Time: Monday, October 24, 2016 22:50 - CONCLUSION: Normal examination. Lazarus Hendrix Jr., MD Objective Remarks GENERAL: This is a well-nourished, well-developed patient, in no apparent distress. CARDIOVASCULAR: Regular rate and regular rhythm without murmurs, gallops, or rubs. RESPIRATORY: Clear to auscultation. Breath sounds equal bilaterally. No wheezes , rales, or rhonchi. GASTROINTESTINAL: Abdomen soft, epigastric tenderness, nondistended. Normal, active bowel sounds MUSCULOSKELETAL: Extremities without clubbing, cyanosis, or edema. NEURO: Alert & Oriented x4 to person, place, time, situation. Moves all ext x4 Procedures none Medications and IVs Current Medications Sodium Chloride (NS 1000 ml Inj) 1,000 ml @ 1,000 mls/hr Q1H IV Last administered on 10/24/16 20:53; Start 10/24/16 at 20:45; Stop 10/24/16 at 21:44 ; Status DC Ketorolac Tromethamine (Toradol Inj) 30 mg ONCE ONCE IV PUSH Last administered on 10/24/16 21:19; Start 10/24/16 at 21:00; Stop 10/24/16 at 21:01 ; Status DC Ondansetron HCl (Zofran Inj) 4 mg ONCE ONCE IV PUSH Last administered on 21:19; Start 10/24/16 at 21:00; Stop 10/24/16 at 21:01; Status DC Morphine Sulfate (Morphine Inj) 4 mg ONCE ONCE IV PUSH Last administered on 22:16; Start 10/24/16 at 22:00; Stop 10/24/16 at 22:01; Status DC Iohexol 96 ml 96 ml STK-MED ONCE IV Last administered on 10/24/16 23:08; Start 10/24/16 at 23:08; Stop 10/24/16 at 23:09; Status DC Sodium Chloride (NS 1000 ml Inj) 1,000 ml @ 100 mls/hr Q10H IV Last administered on 10/26/16 21:23; Start 10/24/16 at 23:02 Sodium Chloride (NS Flush) 2 ml UNSCH PRN IV FLUSH FLUSH AFTER USING IV ACCESS Last administered on 10/26/16 06:24; Start 10/24/16 at 23:15 Sodium Chloride (NS Flush) 2 ml BID IV FLUSH Last administered on 10/25/16 21: 00; Start 10/25/16 at 09:00 Ondansetron HCl (Zofran Inj) 4 mg Q6H PRN IVP NAUSEA OR VOMITING; Start at 23:15 Bisacodyl (Dulcolax Supp) 10 mg DAILY PRN [place] CONSTIPATION; Start 10/24/16 at 23 :15 Morphine Sulfate (Morphine Inj) 2 mg Q3H PRN IV Pain 6-10 Last administered on 10/26/16 10:42; Start 10/24/16 at 23:15; Stop 10/26/16 at 11:40; Status DC Oxycodone HCl (Roxicodone) 5 mg Q4H PRN PO PAIN SCALE 3 TO 5 Last administered on 10/26/16 08:05; Start 10/24/16 at 23:15; Stop 10/26/16 at 11:40; Status DC Lorazepam (Ativan Inj) 1 mg Q3H PRN IV PUSH WITHDRAWAL/AGITATION; Start at 23:15 Morphine Sulfate (Morphine Inj) 8 mg STK-MED ONCE .ROUTE ; Start 10/25/16 at 02: 27; Stop 10/25/16 at 02:28; Status DC Morphine Sulfate (Morphine Inj) 8 mg NOW ONCE IV PUSH Last administered on 02:59; Start 10/25/16 at 02:16; Stop 10/25/16 at 02:56; Status DC Ondansetron HCl 4 mg 4 mg ONCE ONCE IV PUSH Last administered on 10/25/16 02: 59; Start 10/25/16 at 02:16; Stop 10/25/16 at 02:56; Status DC Sodium Chloride 1,000 ml @ 999 mls/hr Q1H1M ONCE IV Last administered on 03:00; Start 10/25/16 at 03:00; Stop 10/25/16 at 04:02; Status DC Acetylcysteine 83932 mg/Dextrose 261.36 ml @ 261.36 mls/hr ONCE ONCE IV Last administered on 10/25/16 03:18; Start 10/25/16 at 02:30; Stop 10/25/16 at 03:29 ; Status DC Acetylcysteine 4100 mg/Dextrose 520.5 ml @ 130.125 mls/hr ONCE ONCE IV Last administered on 10/25/16 03:48; Start 10/25/16 at 03:30; Stop 10/25/16 at 07:29 ; Status DC Acetylcysteine/ Dextrose (Acetadote Inj/ D5W 1000 ml Inj) 1,041 ml @ 62.5 mls/ hr ONCE ONCE IV Last administered on 10/25/16 08:12; Start 10/25/16 at 07:30 ; Stop 10/26/16 at 00:09; Status DC Nicotine (Habitrol 21 Mg Patch.24 Hr) 1 patch DAILY TD Last administered on 09:16; Start 10/25/16 at 15:00 Miscellaneous Information 1 DAILY TD Last administered on 10/27/16 09:00; Start 10/26/16 at 09:00 Hydromorphone HCl (Dilaudid Pf Inj) 1 mg Q4H PRN IV PUSH PAIN 6-10 Last administered on 10/27/16 06:03; Start 10/26/16 at 11:45 Oxycodone HCl (Roxicodone) 10 mg Q4H PRN PO PAIN 3-5 Last administered on 21:23; Start 10/26/16 at 11:45 A/P Assessment and Plan A/P 1. Elevated LFTs: CT Abd/Pelvis w/ no acute findings. Hepatitis Panel with hep C- abdominal pain is better and LFT's trending down- GI has signed off- 2.nodule in pancreatic head; f/u as outpatient- and this was d/w the patient. 3. Cocaine Abuse: Denies ingestion however Urine Drug Screen positive for Cocaine, 4. Tobacco Abuse: Pt counselled. Ativan prn as needed. 5. IVDU: Denies recent use. Pt counselled. Ativan prn Discharge Planning dc home with f/u; pcp and GI. see med list. d/w the patient and RN. Grace Lyon MD Oct 27, 2016 12:40
[2016-10-27] MEDS ORDERED: OXYC1CAP PO ×2 (12:41→12:44)
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
--- NOTE | 2016-10-27 12:42 | HHI.DS ---
Discharge Summary Admission Date Oct 24, 2016 at 23:08 Discharge Date: Oct 27, 2016 Admitting Diagnosis severely elevated LFTs, hep C (1) Elevated liver enzymes ICD Code: R74.8 Diagnosis: Principal (2) Cocaine abuse ICD Code: F14.10 Diagnosis: Secondary (3) IVDU (intravenous drug user) ICD Code: F19.90 Diagnosis: Secondary (4) Tobacco abuse ICD Code: Z72.0 Diagnosis: Secondary (5) Hepatitis C ICD Code: B19.20 Diagnosis: Principal Procedures none Brief History - From Admission This is a 26-year-old male with a PMH of Hepatitis C, Tobacco Abuse and IVDU w/ Cocaine who was brought to the ER by EMS secondary to complaints of abdominal pain x1 month in addition to brown-colored urine. States symptoms have been worsening for the last 2-3 days. Reports he was seen in [place] and [place] for similar complaints approx 4 months ago and was told have "liver failure", however he Left [facility] and returned to [facility]. Seen in ER here on 07/22/16 w/ similar complaints, LFTs mildly elevated at that time and d/c'd home w/ referral to Dr. Colón w/ GI however pt never followed up. On arrival, BP 133/ 76, HR 84, O2 sat 98% on RA, Afebrile. CBC unremarkable. Chemistry unremarkable. AST 593, ALT 1524, ALP 190, previously AST 43, ALT 374 and ALP 74 on 07/22/16. Denies recent IVDU, however Urine Drug Screen positive for Cocaine and Marijuana. CT Abd/Pelvis w/ no acute findings. CBC/BMP: 10/25/16 0327 10/25/16 0327 Significant Findings Laboratory Tests Test 10/24/16 10/24/16 10/25/16 10/26/16 20:55 22:10 03:27 10:40 Neutrophils (%) (Auto) 78.1 % (16.0-70.0) Monocytes (%) (Auto) 9.0 % (0.0-8.0) 9.7 % (0.0-8.0) Neutrophils # (Auto) 7.8 TH/MM3 (1.8-7.7) Aspartate Amino Transf 593 U/L (15-37) 391 U/L (15-37) 309 U/L (15-37) (AST/SGOT) Alanine Aminotransferase 1524 U/L 1140 U/L 1018 U/L (ALT/SGPT) (12-78) (12-78) (12-78) Alkaline Phosphatase 190 U/L 142 U/L 134 U/L (45-117) (45-117) (45-117) Acetaminophen Level LESS THAN 2.0 MCG/ML (10.0-30.0) Urine Cocaine Screen POS (NEG) Urine Cannabinoids Screen POS (NEG) Prothrombin Time 12.2 SEC (9.8-11.6) Calcium Level 8.2 MG/DL (8.5-10.1) Total Protein 6.3 GM/DL (6.4-8.2) Albumin 3.0 GM/DL 3.2 GM/DL (3.4-5.0) (3.4-5.0) Hepatitis C Antibody REACTIVE (NEGATIVE) Test 10/27/16 07:52 Aspartate Amino Transf 343 U/L (15-37) (AST/SGOT) Alanine Aminotransferase 1005 U/L (ALT/SGPT) (12-78) Alkaline Phosphatase 145 U/L (45-117) Albumin 3.2 GM/DL (3.4-5.0) Imaging Last Impressions Liver Ultrasound 10/26/16 0000 Signed Impressions: Service Date/Time: Wednesday, October 26, 2016 10:11 - CONCLUSION: 1. Splenomegaly. 2. Nonspecific, 1.5 cm hypoechoic nodule in the head of the pancreas. This may representing normal pancreatic tissue as no corresponding abnormality is identified on CT. If there is a clinical concern, MRI of the abdomen could be performed for further characterization. Edy Murguia MD Abdomen/Pelvis CT 10/24/16 0000 Signed Impressions: Service Date/Time: Monday, October 24, 2016 22:50 - CONCLUSION: Normal examination. Lazarus Hendrix Jr., MD PE at Discharge GENERAL: This is a well-nourished, well-developed patient, in no apparent distress. CARDIOVASCULAR: Regular rate and regular rhythm without murmurs, gallops, or rubs. RESPIRATORY: Clear to auscultation. Breath sounds equal bilaterally. No wheezes , rales, or rhonchi. GASTROINTESTINAL: Abdomen soft, epigastric tenderness, nondistended. Normal, active bowel sounds MUSCULOSKELETAL: Extremities without clubbing, cyanosis, or edema. NEURO: Alert & Oriented x4 to person, place, time, situation. Moves all ext x4 Hospital Course 1. Elevated LFTs: CT Abd/Pelvis w/ no acute findings. Hepatitis Panel with hep C- abdominal pain is better and LFT's trending down- GI has signed off- 2.nodule in pancreatic head; f/u as outpatient- and this was d/w the patient. 3. Cocaine Abuse: Denies ingestion however Urine Drug Screen positive for Cocaine, 4. Tobacco Abuse: Pt counselled. Ativan prn as needed. 5. IVDU: Denies recent use. Pt counselled. Ativan prn Pt Condition on Discharge: Fair Discharge Disposition: Discharge Home Discharge Time: <= 30 minutes Discharge Instructions DIET: Follow Instructions for: As Tolerated, No Restrictions Activities you can perform: Regular-No Restrictions Follow up Referrals: Gastroenterology PCP Follow-up New Medications: Oxycodone (Oxycodone) 5 Mg Cap 5 MG PO Q6H PRN PAIN #10 Ref 0 CAP Grace Lyon MD Oct 27, 2016 12:42
== END 2016-10-27 13:37 | disposition home or self-care (01) | DRG 443 ==
LOC: NEPE 20:33 → NEDA 23:08 → N06A 10-25 04:27
PROVIDERS: ADMIT Internal Medicine; ATTEND Internal Medicine
DX: B19.20 Unspecified viral hepatitis C without hepatic coma (principal); K86.89 Other specified diseases of pancreas; F14.10 Cocaine abuse, uncomplicated; R74.8 Abnormal levels of other serum enzymes; R11.2 Nausea with vomiting, unspecified; F17.210 Nicotine dependence, cigarettes, uncomplicated; F19.10 Other psychoactive substance abuse, uncomplicated
CPT/HCPCS: 74177; 76705; 80053; 80074; 80076; 80307; 81001; 83690; 85025; 85610; 85730; 96361; 96374; 96375; J0132; J1170; J1885; J2270; J2405; J7030; J7060; J7070; Q9967

== ENCOUNTER 2017-05-16 00:32 | Emergency (ER) | payer SELFPAY ==
[~2017-05-16] VITALS: Ht 172.7 cm; Wt 70.0 kg
[~2017-05-16 00:32] MED LIST: OXYC1CAP PO
[2017-05-16 00:34] VITALS: BP 134/84; PULSE 109; RESP 16; TEMP 97.9; O2SAT 100
[2017-05-16] MEDS ORDERED: SODIUM CHLOR 0.9% 1000 ML INJ 1,000 ML IV SCH (04:42)
[2017-05-16] MEDS ORDERED: FAMOTIDINE 20 MG/2 ML VIAL IV PUSH ONE (04:45)
[2017-05-16] MEDS ORDERED: KETOROLAC TROMETHAMINE 30 MG/ML (IVP) VIAL IVP ONE (04:45)
[2017-05-16] MEDS ORDERED: ONDANSETRON HCL 4 MG/2 ML VIAL IVP ONE (04:45)
[2017-05-16] MEDS ORDERED: SODIUM CHLORIDE 0.9% FLUSH 10 ML FLUSH IV FLUSH PRN (04:45)
--- NOTE | 2017-05-16 04:52 | PD ---
HPI Chief Complaint: Abdominal Pain Time Seen by Provider: 04:31 Travel History International Travel<30 days: No Contact w/Intl Traveler<30days: No Traveled to known affect area: No History of Present Illness HPI 26-year-old male complains of abdominal pain. Patient has history of hepatitis C and elevated liver function enzyme in the past. Patient was admitted to [facility] in September 2016 with diagnosis of elevated liver enzyme, cocaine abuse, IV drug abuse, tobacco abuse and hepatitis C. Patient states that he has not seen a physician for outpatient follow-up since then. Patient states that he has been abusing methamphetamine and heroin recently. Patient denies any headache. Patient denies any chest pain or shortness of breath. Patient denies any nausea vomiting diarrhea. Patient denies any fever chills. Patient states that the urine has strong smell and dark colored . PFSH Past Medical History Diminished Hearing: No Hepatitis: Yes (c) Tetanus Vaccination: Unknown Social History Alcohol Use: No Tobacco Use: Yes (1 PPD) Substance Use: Yes (marijuana and methanphetamines) Allergies-Medications (Allergen,Severity, Reaction): Coded Allergies: acetaminophen (Verified Allergy, Unknown, 05/16/17) pt states "everything swells" Reported Meds & Prescriptions Reported Meds & Active Scripts Active Oxycodone (Oxycodone HCl) 5 Mg Cap 5 Mg PO Q6H PRN Review of Systems General / Constitutional: No: Fever Eyes: No: Visual changes HENT: No: Headaches Cardiovascular: No: Chest Pain or Discomfort Respiratory: No: Shortness of Breath Gastrointestinal: Positive: Abdominal Pain Genitourinary: No: Dysuria Musculoskeletal: No: Pain Skin: No Rash Neurologic: No: Weakness Psychiatric: No: Depression Endocrine: No: Polydipsia Hematologic/Lymphatic: No: Easy Bruising Physical Exam Narrative GENERAL: Well-nourished, well-developed patient. SKIN: Focused skin assessment warm/dry. HEAD: Normocephalic. EYES: No scleral icterus. No injection or drainage. NECK: Supple, trachea midline. No JVD or lymphadenopathy. CARDIOVASCULAR: Regular rate and rhythm without murmurs, gallops, or rubs. RESPIRATORY: Breath sounds equal bilaterally. No accessory muscle use. GASTROINTESTINAL: Abdomen soft, nondistended. Patient has moderate to severe tenderness diffuse over the abdomen. Some guarding noted. No rebound. No mass. MUSCULOSKELETAL: No cyanosis, or edema. BACK: Nontender without obvious deformity. No CVA tenderness. Neurologic exam normal. Data Data Last Documented VS Vital Signs Date Time Temp Pulse Resp B/P (MAP) Pulse Ox O2 Delivery O2 Flow Rate FiO2 05/16/17 00:34 97.9 109 16 134/84 (101) 100 Room Air Orders Orders Complete Blood Count With Diff (05/16/17 04:42) Comprehensive Metabolic Panel (05/16/17 04:42) Lipase (05/16/17 04:42) Prothrombin Time / Inr (Pt) (05/16/17 04:42) Act Partial Throm Time (Ptt) (05/16/17 04:42) Urinalysis - C+S If Indicated (05/16/17 04:42) Ct Abd/Pel W Iv Contrast(Rout) (05/16/17 04:42) Iv Access Insert/Monitor (05/16/17 04:42) Ecg Monitoring (05/16/17 04:42) Oximetry (05/16/17 04:42) Ondansetron Inj (Zofran Inj) (05/16/17 04:45) Sodium Chlor 0.9% 1000 Ml Inj (Ns 1000 M (05/16/17 04:42) Sodium Chloride 0.9% Flush (Ns Flush) (05/16/17 04:45) Electrocardiogram (05/16/17 04:42) Famotidine Inj (Pepcid Inj) (05/16/17 04:45) Ketorolac Inj (Toradol Inj) (05/16/17 04:45) Labs Laboratory Tests Test 05/16/17 05:15 White Blood Count 6.3 TH/MM3 Red Blood Count 5.10 MIL/MM3 Hemoglobin 15.0 GM/DL Hematocrit 43.7 % Mean Corpuscular Volume 85.6 FL Mean Corpuscular Hemoglobin 29.3 PG Mean Corpuscular Hemoglobin Concent 34.3 % Red Cell Distribution Width 13.2 % Platelet Count 267 TH/MM3 Mean Platelet Volume 7.4 FL Neutrophils (%) (Auto) 56.5 % Lymphocytes (%) (Auto) 31.5 % Monocytes (%) (Auto) 9.3 % Eosinophils (%) (Auto) 2.2 % Basophils (%) (Auto) 0.5 % Neutrophils # (Auto) 3.6 TH/MM3 Lymphocytes # (Auto) 2.0 TH/MM3 Monocytes # (Auto) 0.6 TH/MM3 Eosinophils # (Auto) 0.1 TH/MM3 Basophils # (Auto) 0.0 TH/MM3 CBC Comment DIFF FINAL Differential Comment MDM Medical Decision Making Medical Screen Exam Complete: Yes Emergency Medical Condition: Yes Differential Diagnosis Differential diagnosis including gastritis, PUD, pancreatitis, cholecystitis, colitis, UTI, pyelonephritis, nephrolithiasis, ruptured viscus. Narrative Course 26-year-old male with severe abdominal pain. History of IV drug abuse. History of hepatitis C. Normal saline solution 1 25 cc an hour. Toradol 30 mg IV. Pepcid 20 mg IV. Zofran 4 mg IV. 5:35 AM. I was informed by my nurse the patient left AMA. Diagnosis Primary Impression: Abdominal pain Qualified Codes: R10.84 - Generalized abdominal pain Disposition: 07 AGAINST MEDICAL ADVICE Condition: Pj Zhang MD May 16, 2017 04:52
[2017-05-16 05:22] LABS: AUTOMATED NEUTROPHIL # 3.6 TH/MM3 (1.8-7.7); BASOPHIL % 0.5 % (0.0-2.0); EOSINOPHIL # 0.1 TH/MM3 (0-0.4); EOSINOPHIL % 2.2 % (0.0-4.0); HEMATOCRIT 43.7 % (39.0-51.0); HEMO FLAGS DIFF FINAL; LYMPH % 31.5 % (9.0-44.0); MEAN CELL VOLUME 85.6 FL (80.0-100.0); MEAN CORPUSCULAR HEMOGLOBIN 29.3 PG (27.0-34.0); MEAN CORPUSCULAR HGB CONC 34.3 % (32.0-36.0); MONO % 9.3 % (0.0-8.0); NEUT % 56.5 % (16.0-70.0); PLATELET COUNT 267 TH/MM3 (150-450); RED CELL DISTRIBUTION WIDTH 13.2 % (11.6-17.2); WHITE BLOOD COUNT 6.3 TH/MM3 (4.0-11.0)
[2017-05-16 05:52] LABS: ALKALINE PHOSPHATASE 67 U/L (45-117); TOTAL BILIRUBIN ADULT 0.3 MG/DL (0.2-1.0)
[2017-05-16 06:15] LABS: ALT (GPT) 45 U/L (12-78); ANION GAP 6 MEQ/L (5-15); AST (GOT) 31 U/L (15-37); BICARBONATE 26.9 MEQ/L (21.0-32.0); BLOOD UREA NITROGEN 9 MG/DL (7-18); CHLORIDE 104 MEQ/L (98-107); GLOMERULAR FILTRATION RATE 107 ML/MIN (>89); SODIUM (NA) 137 MEQ/L (136-145)
[2017-05-16 06:17] LABS: POTASSIUM 4.3 MEQ/L (3.5-5.1)
== END 2017-05-16 06:40 | disposition left against medical advice (07) ==
LOC: NEPC 00:32
DX: R10.84 Generalized abdominal pain (principal); R82.99 Other abnormal findings in urine; F17.200 Nicotine dependence, unspecified, uncomplicated; Z86.19 Personal history of other infectious and parasitic diseases; Z53.20 Procedure and treatment not carried out because of patient's decision for unspecified reasons
CPT/HCPCS: 80053; 83690; 85025; 96374; 96375; 99284; J1885; J2405; J7030